=== PATIENT | female | born 1995 | race Caucasian/White ===

== ENCOUNTER → 2017-07-21 | Outpatient (CLI) | payer BC ==
--- NOTE | 2017-07-21 13:22 | DIAGNOSTIC IMAGING REPORT ---
LEFT ANKLE 3 VIEWS CLINICAL HISTORY: Left ankle pain. FINDINGS: 3 views of the left ankle are obtained. No prior studies are available for comparison at the time of dictation. The skeletal structures are well mineralized. No fracture is seen. The ankle mortise is intact. A small joint effusion is noted. Mild soft tissue swelling is present around the ankle. IMPRESSION: Mild soft tissue swelling and joint effusion. No left ankle fracture is seen. Electronically signed by: Jun Olivas M.D. 07/21/2017 1:21 PM Dictated Date/Time: 07/21/2017 1:19 PM
== END | disposition home or self-care (01) ==
LOC: C.RDSM 12:30
PROVIDERS: ATTEND Internal Medicine
DX: M25.572 Pain in left ankle and joints of left foot (principal)